=== PATIENT | male | born 1980 | race African-American/Black ===

== ENCOUNTER 2018-05-19 20:09 | Emergency (ER) | payer BC ==
[~2018-05-19] VITALS: Ht 175.3 cm; Wt 78.0 kg
[2018-05-19] MEDS ORDERED: IPRATROPIUM/ALBUTEROL 0.5-3(2.5)MG/3ML NEB HHN ONE (22:30)
[2018-05-19] MEDS ORDERED: PREDNISONE 20MG TABLET PO ONE (22:30)
[2018-05-19 23:50] VITALS: BP 135/81
== END 2018-05-19 23:55 | disposition home or self-care (01) ==
LOC: ER 20:09
DX: J06.9 Acute upper respiratory infection, unspecified (principal); J45.909 Unspecified asthma, uncomplicated
CPT/HCPCS: 94640; 99283; J7512; J7620